=== PATIENT | male | born 1960 | race Caucasian/White ===

== ENCOUNTER 2016-10-23 15:06 | Emergency (ER) | payer MEDICARE, MEDICAID ==
[2016-10-23 17:29] VITALS: BP 141/87
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
--- NOTE | 2016-10-25 09:09 | CR ---
Ankle Min 3V Lt INDICATION: ankle pain FINDINGS: Negative left ankle.
== END 2016-10-23 20:00 | disposition home or self-care (01) ==
LOC: JP.ED 15:06
DX: M25.572 Pain in left ankle and joints of left foot (principal); Z88.2 Allergy status to sulfonamides; Z87.891 Personal history of nicotine dependence
CPT/HCPCS: 73610-26-LT; 73610-LT; 99282; 99284

== ENCOUNTER 2016-12-21 13:13 | Emergency (ER) | payer MEDICARE, MEDICAID ==
[2016-12-21 13:38] VITALS: BP 129/79
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
== END 2016-12-21 15:23 | disposition home or self-care (01) ==
LOC: JP.ED 13:13
DX: K75.9 Inflammatory liver disease, unspecified (principal); L53.9 Erythematous condition, unspecified; F41.9 Anxiety disorder, unspecified; D32.9 Benign neoplasm of meninges, unspecified; Z88.1 Allergy status to other antibiotic agents
CPT/HCPCS: 36415; 80053; 81001; 85027; 99282; 99283

== ENCOUNTER 2017-04-28 09:06 | Day surgery (SDC) | payer MEDICARE, MEDICAID ==
[2017-04-28] MEDS ORDERED: Sodium Chloride 0.9% 1,000 ML IV SCH (09:30)
[2017-04-28] MEDS ORDERED: Midazolam 1 MG/ML 2 ML SDV ONE (09:32)
[2017-04-28] MEDS ORDERED: fentaNYL 100 MCG/2 ML SDV ONE (09:32)
[2017-04-28] MEDS ORDERED: Propofol 200 MG/20 ML SDV ONE (09:32)
[2017-04-28 11:43] VITALS: BP 111/72
--- NOTE | 2017-04-28 14:04 | OR ---
DATE OF PROCEDURE: 04/28/2017 PROCEDURES: 1. EGD. 2. Colonoscopy. FINDINGS: 1. Inflammation at the GE junction consistent with reflux disease (biopsied using cold biopsy forceps). 2. Sigmoid colon polyp, completely removed using hot snare. RISKS: Risks, benefits, alternatives, and limitations including, but not limited to infection, bleeding, and perforation were explained to the patient. PREOPERATIVE DIAGNOSIS: Screening colonoscopy for hepatitis B treatment. POSTOPERATIVE DIAGNOSIS: Screening colonoscopy for hepatitis B treatment. PROCEDURE IN DETAIL: The patient was placed in left lateral decubitus position. The EGD scope was introduced and advanced atraumatically to the second part of the duodenum. The scope was brought back into the stomach. No masses. No abnormalities. No hiatal hernia. At the GE junction, there was inflammation consistent with reflux disease and biopsied using cold biopsy forceps in 4 quadrants. The esophagus was normal. Digital rectal exam was performed next. The scope was introduced and advanced atraumatically to the ileocecal valve. The scope was brought back to the ascending, transverse, descending colon and retroflexed. The patient had small amount of diverticulosis, very mild, very limited to the sigmoid colon. A snare was used to remove a 1 cm polyp in the sigmoid colon. The patient tolerated the procedures well. Christo David MD /[id number]
== END 2017-04-28 11:50 | disposition home or self-care (01) ==
LOC: JP.SDS 09:06
PROVIDERS: ATTEND Surgery
DX: Z12.11 Encounter for screening for malignant neoplasm of colon (principal); K63.5 Polyp of colon; K20.9 Esophagitis, unspecified; K57.30 Diverticulosis of large intestine without perforation or abscess without bleeding; B18.2 Chronic viral hepatitis C; F41.9 Anxiety disorder, unspecified; F32.9 Major depressive disorder, single episode, unspecified; Z88.1 Allergy status to other antibiotic agents
CPT/HCPCS: 43239; 45385; 88305; 88312; J2250; J2704; J3010; J7040

== ENCOUNTER 2017-05-31 12:48 | Emergency (ER) | payer MEDICARE, MEDICAID ==
[2017-05-31 14:18] VITALS: BP 152/102
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
== END 2017-05-31 16:12 | disposition home or self-care (01) ==
LOC: JP.ED 12:48
DX: S00.93XA Contusion of unspecified part of head, initial encounter (principal); S20.20XA Contusion of thorax, unspecified, initial encounter; Z87.891 Personal history of nicotine dependence; Z88.1 Allergy status to other antibiotic agents; Y04.0XXA Assault by unarmed brawl or fight, initial encounter; Y92.89 Other specified places as the place of occurrence of the external cause
CPT/HCPCS: 99283; 99284

== ENCOUNTER 2019-01-31 08:10 | Day surgery (SDC) | payer MEDICARE, MEDICAID ==
[~2019-01-31 08:10] MED LIST: Bupivacaine 0.5% 50 ML MDV ONE; Nozin Nasal Sanitizer NASBOTH ONE
[2019-01-31] MEDS ORDERED: Clindamycin Phosphate 900 MG in Sodium Chloride 0.9% 100 ML IV ONE (08:15)
[2019-01-31] MEDS: Lactated Ringers 1,000 ML IV SCH ×2 (08:46→13:04)
[2019-01-31] MEDS ORDERED: fentaNYL 250 MCG/5 ML SDV ONE ×2 (09:45→12:21)
[2019-01-31] MEDS ORDERED: Neostigmine Methylsulfate 1 MG/ML 5 ML Syringe ONE (09:46)
[2019-01-31] MEDS ORDERED: Ondansetron 4 MG/2 ML SDV ONE (09:46)
[2019-01-31] MEDS ORDERED: Glycopyrrolate 0.2 MG/ML 5 ML MDV ONE (09:46)
[2019-01-31] MEDS ORDERED: Propofol 200 MG/20 ML SDV ONE (09:46)
[2019-01-31] MEDS ORDERED: Dexamethasone 4 MG/ML SDV ONE (09:46)
[2019-01-31] MEDS ORDERED: Rocuronium 50 MG/5 ML Vial ONE (09:46)
[2019-01-31] MEDS ORDERED: Succinylcholine 200 MG/10 ML MDV ONE (09:46)
[2019-01-31] MEDS ORDERED: Ketorolac 60 MG/2 ML SDV IM ONE (12:56)
[2019-01-31] MEDS ORDERED: Acetaminophen/HYDROcodone 325-5 MG Tab PO PRN (13:58)
[2019-01-31 14:32] VITALS: BP 142/83; PULSE 62
--- NOTE | 2019-02-02 11:54 | OR ---
DATE OF PROCEDURE: 01/31/2019 PREOPERATIVE DIAGNOSES: 1. Fragmented bipartite patella, right knee. 2. Chondromalacia of patellofemoral joint, right knee. POSTOPERATIVE DIAGNOSES: 1. Fragmented bipartite patella, right knee. 2. Chondromalacia of trochlea, grade 4, secondary to #1. PROCEDURE: Arthroscopy, right knee, with excision of bipartite fragments. ANESTHESIA: General. INDICATIONS: Mr. Beltran is a 58-year-old gentleman with a history of chronic right knee pain, which has gotten worse over the past few weeks. 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 He has had difficulty with anterior and anterolateral knee pain for the past couple of years, and this is now limiting his activities and delayed work. X-ray and previous MRI reveal a fragmented bipartite patella with erosion of the trochlear groove laterally secondary to the bipartite fragments. He now presents for excision of these fragments and chondroplasty of the trochlear groove as necessary. Risks, benefits, and potential complications of the procedure were discussed. DESCRIPTION OF PROCEDURE: After adequate anesthesia was obtained, the patient was placed supine with a tourniquet about the right upper thigh. Right leg was prepped and draped in a sterile fashion. Leg was exsanguinated and tourniquet inflated to 250 mmHg. Standard inferior, medial and lateral portals were established. Patellofemoral joint was inspected. This revealed no significant wear in the central portion of the trochlea or patella. Some very mild grade 1 softening was present. The lateral facet of the trochlear revealed a groove running superior to inferior with exposed subchondral bone consistent with a grade 4 chondral lesion and trough created by abrasion of the displaced fragments. One large and one smaller fragmented portions were noted off the lateral edge of the patella. The remainder of the knee was inspected, which revealed no evidence of meniscus or articular cartilage damage in the medial or lateral compartments. ACL and PCL were intact. Attention was returned to the patella. An accessory superomedial portal was established and a erica was then inserted and used to excise the bony fragments. When the limits of this approach were reached, a small thin bony layer was still present. A second superolateral accessory portal was established, and the erica was then used through this port to excise the remainder of the bone fragments. Shaver was used to contour the edge of the patella. No loose fragments were noted along the trochlear groove that was present. The knee was taken through range of motion, and the patellofemoral joint was visualized. There was no evidence of impingement against the groove after removal of the fragments. Knee was drained, scope was withdrawn, and port sites were closed in a standard fashion. Sterile dressing was applied. The patient was taken from the operating room in a stable condition. Junior Aj MD /[id number]
== END 2019-01-31 15:20 | disposition home or self-care (01) ==
LOC: JP.SDS 08:10
PROVIDERS: ATTEND Specialist
DX: Q74.1 Congenital malformation of knee (principal); M22.41 Chondromalacia patellae, right knee; F17.220 Nicotine dependence, chewing tobacco, uncomplicated; F41.9 Anxiety disorder, unspecified; F32.9 Major depressive disorder, single episode, unspecified; F43.10 Post-traumatic stress disorder, unspecified; Z88.0 Allergy status to penicillin
CPT/HCPCS: 29877; A9270; J0330; J1100; J1885; J2405; J2704; J2710; J3010; J3490; J7030; J7120